=== PATIENT | female | born 1960 | race Caucasian/White ===

== ENCOUNTER 2018-03-31 13:04 | Observation (INO) ==
[2018-03-31] MEDS ORDERED: Aspirin 81 MG TAB.CHEW PO ONE (13:16)
--- NOTE | 2018-03-31 13:16 | Emergency Department Note ---
Disposition Clinical Impression: Stable angina Disposition: Admitted As Inpatient Condition: Fair Referrals: Kiki Rutledge MD [Primary Care Provider] - Time of Disposition: 16:01 Chest Pain HPI - General Stated Complaint: chest pain Time Seen by Provider: 03/31/18 13:06 Source: patient Mode of arrival: ambulatory Limitations: no limitations Vital Signs Reviewed: Yes Nursing Notes Reviewed: Yes - History of Present Illness HPI Narrative: Patient presents to the ED if the chief complaint of chest pain. Patient states that it started earlier today. Located in her central and right chest. Describes it as sharp, stabbing, constant, nonradiating. Has a history of a stent, but does not remember if this pain feels similar or not. Denies any nausea or diaphoresis. No headache or changes in vision. No difficulty breathing. No abdominal pain, nausea, vomiting or diarrhea. No rashes - Related Data Home Medications Medication Instructions Recorded Confirmed Atorvastatin Calcium [Lipitor] 80 mg PO HS 03/31/18 03/31/18 Cetirizine HCl [All Day Allergy] 10 mg PO DAILY 03/31/18 03/31/18 Clopidogrel [Plavix] 75 mg PO DAILY 03/31/18 Ergocalciferol (VITAMIN D2) 50,000 unit PO QWEEK 03/31/18 03/31/18 [Vitamin D2] Fenofibrate [Tricor] 54 mg PO DAILY 03/31/18 03/31/18 Gabapentin [Neurontin] 300 mg PO TID 03/31/18 03/31/18 Insulin Degludec [Tresiba 35 unit SQ QPM 03/31/18 03/31/18 Flextouch U-200] Losartan/Hydrochlorothiazide 1 tab PO DAILY 03/31/18 [Losartan-Hctz 100-12.5 mg Tab] Naproxen [Naprosyn] 500 mg PO BID 03/31/18 03/31/18 [place]-3/Dha/Epa/Fish Oil [Cvs Fish 1 cap PO BID 03/31/18 03/31/18 Oil 1,000 mg Softgel] Omeprazole [PriLOSEC] 40 mg PO DAILY 03/31/18 03/31/18 Oxybutynin Chloride [Ditropan Xl] 10 mg PO DAILY 03/31/18 03/31/18 Sennosides/Docusate Sodium [Senna 1 tab PO BID 03/31/18 03/31/18 Plus] Tizanidine HCl 2 mg PO BID 03/31/18 03/31/18 Allergies Allergy/AdvReac Type Severity Reaction Status Date / Time No Known Allergies Allergy Verified 03/31/18 14:26 Review of Systems: As reviewed in the HPI. All other systems reviewed are negative or normal. Physical Exam CONSTITUTIONAL: [well appearing, alert and in no acute distress] EYES: [EOMI, clear conjunctiva, PERRLA] HENT: [Normocephalic, atraumatic, moist mucus membranes, normal oropharynx] NECK: [normal inspection, full ROM, trachea midline, no obvious swelling] PULMONARY: [normal lung sounds bilaterally, normal chest rise and fall, no respiratory distress or stridor, no wheezes, no rales, no rhonchi CARDIOVASCULAR: [regular rate, regular rhythm, normal heart sounds, no murmurs, distal extremities are warm and well perfused] GASTROINSTESTINAL: [soft, non-tender, non-rigid, non-distended, no guarding, no rebound, normal bowel sounds] GENITOURINARY/RECTAL: [deferred] NEUROLOGIC: [Alert, oriented x3, normal speech, moves all extremities] EXTREMITIES: [Normal inspection, full ROM, no tenderness, no pedal edema, normal capillary refill] MUSCULOSKELETAL: [no gross deformities, atraumatic] SKIN: [No cyanosis, no diaphoresis, normal color, warm, no rash] PSYCHIATRIC: [normal mood and affect] Course Course Narrative: Patient admitted the hospitalist service. - Reevaluation(s) Reevaluation #1: Pain is better and gone after nitroglycerin Vital Signs Temperature 98.8 F 03/31/18 13:15 Pulse Rate 70 03/31/18 13:15 Respiratory Rate 16 03/31/18 13:15 Blood Pressure 144/79 03/31/18 13:15 O2 Sat by Pulse Oximetry 96 03/31/18 13:15 Temperature 98.8 F 03/31/18 13:15 Pulse Rate 84 03/31/18 14:09 Respiratory Rate 16 03/31/18 14:09 Blood Pressure 129/86 03/31/18 14:09 O2 Sat by Pulse Oximetry 96 03/31/18 14:09 Oxygen Delivery Oxygen Delivery Room Air Chest Pain - Medical Records Medical records reviewed: Yes I reviewed the patient's medical records. - Lab Data Lab results reviewed: Yes I reviewed the patient's lab results. Result diagrams: 03/31/18 13:32 03/31/18 13:32 Lab Results 03/31/18 03/31/18 03/31/18 Range/Units 13:32 13:32 13:32 WBC 7.3 (4.3-11.1) K/mcL RBC 4.51 (3.82-4.97) M/mcL Hgb 13.2 (11.5-15.4) g/dL Hct 41.7 (35.3-44.9) % MCV 92.5 (83.0-100.0) fL MCH 29.3 (28.0-33.3) pg MCHC 31.7 (31.6-35.5) g/dL RDW 12.9 (11.5-14.5) % Plt Count 245 (140-400) K/mcL MPV 11.5 (9.4-12.4) fL Immature Gran % 0.3 (0-4) % Seg Neutrophils % 62.0 % Lymphocytes % 26.9 % Monocytes % 6.3 % Eosinophils % 4.0 % Basophils % 0.5 % Neutrophils # 4.5 (1.6-8.9) K/mcL Lymphocytes # 2.0 (0.6-4.6) K/mcL Monocytes # 0.5 (0.0-1.3) K/mcL Eosinophils # 0.3 (0.0-0.6) K/mcL Basophils # 0.0 (0.0-0.2) K/mcL D-Dimer 782 H (0-500) ng/mLFEU Sodium 141 (136-145) mEq/L Potassium 3.8 (3.5-5.1) mEq/L Chloride 107 (98-107) mEq/L Carbon Dioxide 26 (23-29) mEq/L BUN 21 H (6-20) mg/dL Creatinine 1.14 (0.60-1.20) mg/dL Est GFR ( Amer) 59 L (> 60) Est GFR (Non-Af Amer) 49 L (> 60) BUN/Creatinine Ratio 18 (6-26) Glucose 163 H (70-105) mg/dL Calculated Osmolality 299 (280-300) Calcium 9.5 (8.6-10.3) mg/dL Troponin I < 0.03 (< 0.04) ng/mL Urine Color (Yellow) Urine Clarity (Clear) Urine pH (5.0-8.0) pH Units Ur Specific [place] (1.010-1.025) Urine Protein (Neg-Trace) mg/dL Urine Glucose (UA) (Normal) mg/dL Urine Ketones (Negative) mg/dL Urine Blood (Negative) Urine Nitrite (Negative) Urine Bilirubin (Negative) Urine Urobilinogen (Normal) mg/dL Ur Leukocyte Esterase (Negative) Urine Microscopic RBC (0-3) per hpf Urine Microscopic WBC (0-3) per hpf Ur Squamous Epith Cells (None-Few) per lpf Urine Bacteria (None-Few) per hpf Hyaline Casts (None-Few) per lpf Ur Culture Indicated? (NO) 03/31/18 Range/Units 13:55 WBC (4.3-11.1) K/mcL RBC (3.82-4.97) M/mcL Hgb (11.5-15.4) g/dL Hct (35.3-44.9) % MCV (83.0-100.0) fL MCH (28.0-33.3) pg MCHC (31.6-35.5) g/dL RDW (11.5-14.5) % Plt Count (140-400) K/mcL MPV (9.4-12.4) fL Immature Gran % (0-4) % Seg Neutrophils % % Lymphocytes % % Monocytes % % Eosinophils % % Basophils % % Neutrophils # (1.6-8.9) K/mcL Lymphocytes # (0.6-4.6) K/mcL Monocytes # (0.0-1.3) K/mcL Eosinophils # (0.0-0.6) K/mcL Basophils # (0.0-0.2) K/mcL D-Dimer (0-500) ng/mLFEU Sodium (136-145) mEq/L Potassium (3.5-5.1) mEq/L Chloride (98-107) mEq/L Carbon Dioxide (23-29) mEq/L BUN (6-20) mg/dL Creatinine (0.60-1.20) mg/dL Est GFR ( Amer) (> 60) Est GFR (Non-Af Amer) (> 60) BUN/Creatinine Ratio (6-26) Glucose (70-105) mg/dL Calculated Osmolality (280-300) Calcium (8.6-10.3) mg/dL Troponin I (< 0.04) ng/mL Urine Color Yellow (Yellow) Urine Clarity Clear (Clear) Urine pH 6.5 (5.0-8.0) pH Units Ur Specific [place] 1.027 H (1.010-1.025) Urine Protein Negative (Neg-Trace) mg/dL Urine Glucose (UA) Normal (Normal) mg/dL Urine Ketones Negative (Negative) mg/dL Urine Blood Negative (Negative) Urine Nitrite Negative (Negative) Urine Bilirubin Negative (Negative) Urine Urobilinogen Normal (Normal) mg/dL Ur Leukocyte Esterase Small H (Negative) Urine Microscopic RBC 0-3 (0-3) per hpf Urine Microscopic WBC 5-15 H (0-3) per hpf Ur Squamous Epith Cells Many H (None-Few) per lpf Urine Bacteria None Seen (None-Few) per hpf Hyaline Casts None Seen (None-Few) per lpf Ur Culture Indicated? NO. A (NO) - Radiology Data Radiology results reviewed: Yes I reviewed the patient's radiology results. - EKG Data EKG attestation: Yes I reviewed and interpreted this EKG. EKG results narrative: Sinus rhythm, rate 53, indeterminate axis, no acute ischemic changes Heart Score - Score History: Highly Suspicious EKG: Normal Age: 45-65 Risk Factors: Equal/Greater than 3 risk factor or history of atherosclerotic disease Troponin: Less than normal limit HEART Score Total: 5 Attestation Statement - Attestation Attestation: Patient was seen with resident physician. I reviewed the history, physical, assessment and plan, and agree with the findings. I also personally evaluated this patient and had [id number] time with this patient. 57-year-old female presents emergency Department with chest pain. Pain lasted approximately 5-7 minutes. Patient took a nitroglycerin. It resolved. Patient states the pain is in the middle the chest was nonradiating and it was sharp in nature. Patient has a history of DC with stent placement approximately 3 years ago. She denies diaphoresis or shortness of breath. She denies other symptoms. Currently she is pain-free. Review of systems as above remainder negative. Physical exam vital signs are stable. ENT is unremarkable. Heart regular rhythm and rate. Lungs clear. Abdomen is soft and nontender. Extremities are unremarkable. Neurologically intact. Skin no rashes. Psych normal. ED course. We will do usual cardiac workup. EKG shows no acute ischemic changes. Once workup is complete we will likely admit the patient to the hospital service for additional evaluation and treatment. She has any more pain will treat with nitroglycerin. Troponin was negative. EKG showed no acute ischemic changes. However patient had atherosclerotic changes that could be seen on her CT scan. And, in addition the fact that she had chest pain that r esolved with nitroglycerin, we felt it was important to admit the patient for additional evaluation and treatment is indicated. We contacted the hospitalist service agreed to accept the patient. Hemodynamically she remained stable and chest pain-free while in the emergency department. I agree with resident physician assessment and plan.
[2018-03-31 13:55] LABS: Basophils % 0.5 %; Eosinophils # 0.3 K/mcL (0.0-0.6); Hematocrit 41.7 % (35.3-44.9); Hemoglobin 13.2 g/dL (11.5-15.4); Immature Granulocytes % 0.3 % (0-4); Lymphocytes % 26.9 %; Mean Corpuscular HGB Conc 31.7 g/dL (31.6-35.5); Mean Corpuscular Hemoglobin 29.3 pg (28.0-33.3); Mean Corpuscular Volume 92.5 fL (83.0-100.0); Mean Platelet Volume 11.5 fL (9.4-12.4); Monocytes # 0.5 K/mcL (0.0-1.3); Monocytes % 6.3 %; Neutrophils # 4.5 K/mcL (1.6-8.9); Platelet Count 245 K/mcL (140-400); Red Blood Count 4.51 M/mcL (3.82-4.97); Red Cell Distribution Width 12.9 % (11.5-14.5)
[2018-03-31 14:09] LABS: Bilirubin,Urine Negative (Negative); Blood,Urine Negative (Negative); Clarity,Urine Clear (Clear); Color,Urine Yellow (Yellow); Glucose,Urine (UA) Normal (Normal); Ketones,Urine Negative (Negative); Leukocyte Esterase,Urine Small (Negative); Nitrite,Urine Negative (Negative); PH,Urine 6.5 pH Units (5.0-8.0); Protein,Urine Negative (Neg-Trace); Specific Gravity,Urine 1.027 (1.010-1.025); Urobilinogen,Urine Normal (Normal)
[2018-03-31 14:15] LABS: Bacteria,Urine None Seen per hpf (None-Few); Hyaline Casts,Urine None Seen per lpf (None-Few); RBC,Urine 0-3 per hpf (0-3); Squamous Epithelial Cell,Urine Many per lpf (None-Few)
[2018-03-31 14:17] LABS: BUN/Creatinine Ratio 18 (6-26); Blood Urea Nitrogen 21 mg/dL (6-20); Calcium 9.5 mg/dL (8.6-10.3); Carbon Dioxide 26 mEq/L (23-29); Chloride 107 mEq/L (98-107); Glucose 163 mg/dL (70-105); Osmolality,Calculated 299 (280-300); Potassium 3.8 mEq/L (3.5-5.1); Sodium 141 mEq/L (136-145); eGFR For Non-African Americans 49 (> 60)
[2018-03-31 14:18] LABS: Troponin I < 0.03 ng/mL (< 0.04)
[2018-03-31] MEDS ORDERED: Isovue-370 500 ML INFUS..BTL IV ONE (14:36)
[2018-03-31] MEDS ORDERED: Naloxone 0.4 MG/ML INJ IVP PRN (17:39)
--- NOTE | 2018-03-31 17:55 | Internal Med History&Physical ---
Date of Encounter: 03/31/18 Time of Encounter: 17:46 Internal Medicine - H&P: HPI Chief complaint: CP Admitted From: Emergency Dept Plans for Post Hospital Care: Home History of present illness: Ms. Riojas is a 57 year old female patient with history of CAD status post a stent 10 years ago under care of cardiology at [facility], hypertension, arthritis came to ER with complaint of substernal chest pain is started to ra diate left chest not associated with nausea lightheadedness or diaphoresis. She rated pain 8 x 10 and took one nitroglycerin that is started to ease down incompletely resolved when released to ER after taking 1 dose of aspirin. Pain was started when she was sitting in the car when her daughter was driving to take her to shopping center. Daughter brought her to ER immediately when patient is started to have chest pain. In ER initial troponin negative with no acute ST-T wave change in the EKG. Vitals stable with no significant lab abnormality. She is not able to recall about last a stress tests or any cardiac workup. During my evaluation patient denies any chest pain. She also denies fever chills nausea vomiting headache dizziness shortness of breath abdominal pain urinary or bowel complaint Patient live at [facility] and visiting [place] for shopping Past Med Surg Social Fam HX - Past Medical History Medical history: diabetes, hypertension, myocardial infarction Psychiatric history: no psych history - Past Surgical History Additional surgical history: stent in heart - Social History Smoking Status: Never smoker Smokeless Tobacco Status: No Alcohol use: none Drug use: none Internal Medicine - H&P: Meds Atorvastatin Calcium [Lipitor] 80 mg PO HS 03/31/18 [History] Cetirizine HCl [All Day Allergy] 10 mg PO DAILY 03/31/18 [History] Clopidogrel [Plavix] 75 mg PO DAILY 03/31/18 [History] Ergocalciferol (VITAMIN D2) [Vitamin D2] 50,000 unit PO QWEEK 03/31/18 [History] Fenofibrate [Tricor] 54 mg PO DAILY 03/31/18 [History] Gabapentin [Neurontin] 300 mg PO TID 03/31/18 [History] Insulin Degludec [Tresiba Flextouch U-200] 35 unit SQ QPM 03/31/18 [History] Losartan/Hydrochlorothiazide [Losartan-Hctz 100-12.5 mg Tab] 1 tab PO DAILY 03/31/18 [History] Naproxen [Naprosyn] 500 mg PO BID 03/31/18 [History] [place]-3/Dha/Epa/Fish Oil [Cvs Fish Oil 1,000 mg Softgel] 1 cap PO BID 03/31/18 [History] Omeprazole [PriLOSEC] 40 mg PO DAILY 03/31/18 [History] Oxybutynin Chloride [Ditropan Xl] 10 mg PO DAILY 03/31/18 [History] Sennosides/Docusate Sodium [Senna Plus] 1 tab PO BID 03/31/18 [History] Tizanidine HCl 2 mg PO BID 03/31/18 [History] Allergy/AdvReac Type Severity Reaction Status Date / Time No Known Allergies Allergy Verified 03/31/18 14:26 All Systems PM: A 10-system review of systems was performed and is negative for pertinent findings except as documented above in the HPI. - Constitutional Vitals: Temp Pulse Resp BP Pulse Ox 98.8 F 76 15 136/85 96 03/31/18 13:15 03/31/18 16:22 03/31/18 17:24 03/31/18 17:24 03/31/18 16:22 Exam: General appearance: No acute distress, A&O X 3 Head exam: Atraumatic Eye exam: EOMI, PERRLA ENT exam: Moist oral mucosa Neck nontender, supple Respiratory exam: Clear to auscultation bilaterally Cardiovascular exam: Regular rate and rhythm, no systolic murmur Abdominal exam: Soft, nontender, nondistended, positive bowel sounds Extremities exam: No calf tenderness, no pedal edema Present: Skin-no rash, warm, dry, intact Neurological exam: Alert, awake, oriented 3, CN II-XII intact, no focal deficits. Internal Med - H&P Results - Labs CBC & Chem 7: 03/31/18 13:32 03/31/18 13:32 Labs: Short CBC 03/31/18 Range/Units 13:32 WBC 7.3 (4.3-11.1) K/mcL Hgb 13.2 (11.5-15.4) g/dL Hct 41.7 (35.3-44.9) % Plt Count 245 (140-400) K/mcL Neutrophils # 4.5 (1.6-8.9) K/mcL BMP 03/31/18 13:32 Sodium 141 Potassium 3.8 Chloride 107 Carbon Dioxide 26 BUN 21 H Creatinine 1.14 Glucose 163 H Calcium 9.5 Cardiac Enzymes 03/31/18 Range/Units 13:32 Troponin I < 0.03 (< 0.04) ng/mL Urine 03/31/18 Range/Units 13:55 Urine Color Yellow (Yellow) Urine Clarity Clear (Clear) Urine pH 6.5 (5.0-8.0) pH Units Ur Specific [place] 1.027 H (1.010-1.025) Urine Protein Negative (Neg-Trace) mg/dL Urine Glucose (UA) Normal (Normal) mg/dL - Impressions ITS Impressions Chest X-Ray 03/31/18 13:16 IMPRESSION: No acute abnormality. D/ / Al Ny MD / Al Ny MD Interpreting Provider: Al Ny MD Chest CTA 03/31/18 14:36 IMPRESSION: No acute pulmonary embolus. No acute abnormality in the chest. Extensive coronary atherosclerosis D/ / Al Ny MD / Al Ny MD Interpreting Provider: Al Ny MD - Assessment and plan (1) Chest pain Current Visit: Yes Status: Acute Assessment and plan: Multiple risk factor with previous history of CAD, hypertension with new onset of chest pain therefore need to rule out. Will admit patient in telemetry bed, serial troponin, echocardiogram. A stress test tomorrow. Continue aspirin, statin, nitroglycerin, oxygen when necessary. Will consult cardiology if needed Qualifiers: Chest pain type: other chest pain Qualified Code(s): R07.89 - Other chest pain; R07.8 - Other chest pain (2) CAD (coronary artery disease) Current Visit: Yes Status: Acute Assessment and plan: History of a stent 10 years ago. Follow cardiology at [place]. above- mentioned. Qualifiers: Coronary Disease-Associated Artery/Lesion type: unspecified vessel or lesion type Associated angina: angina presence unspecified Qualified Code(s): I25.10 - Atherosclerotic heart disease of [place] coronary artery without angina pectoris (3) Hypertension Current Visit: Yes Status: Acute Assessment and plan: Stable blood pressure. Monitor closely. will start low-dose beta christiane if tolerated Qualifiers: Hypertension type: essential hypertension Qualified Code(s): I10 - Essential (primary) hypertension (4) DVT prophylaxis Current Visit: Yes Status: Acute Assessment and plan: Subcutaneous heparin (5) Hyperlipidemia Current Visit: Yes Status: Acute Assessment and plan: Fasting lipid profile in the morning. Continue home medicine statin Qualifiers: Hyperlipidemia type: unspecified Qualified Code(s): E78.5 - Hyperlipidemia, unspecified - Time Spent With Patient Total time spent is greater than 50% in coordination of care (as documented) at patient's floor/unit and/or counseling patient: 25 - 35 minutes
[2018-03-31] MEDS: *HR* Heparin 5,000 UNIT/ML VIAL SQ SCH (20:49)
[2018-03-31] MEDS: Gabapentin 300 MG CAPSULE PO SCH (22:01)
[2018-04-01 00:58] LABS: Basophils % 0.5 %; Eosinophils # 0.3 K/mcL (0.0-0.6); Eosinophils % 3.7 %; Hematocrit 40.6 % (35.3-44.9); Hemoglobin 13.1 g/dL (11.5-15.4); Immature Granulocytes % 0.1 % (0-4); Lymphocytes # 2.5 K/mcL (0.6-4.6); Lymphocytes % 33.7 %; Mean Corpuscular HGB Conc 32.3 g/dL (31.6-35.5); Mean Corpuscular Hemoglobin 29.2 pg (28.0-33.3); Mean Corpuscular Volume 90.4 fL (83.0-100.0); Mean Platelet Volume 11.7 fL (9.4-12.4); Monocytes # 0.5 K/mcL (0.0-1.3); Neutrophils # 4.1 K/mcL (1.6-8.9); Platelet Count 208 K/mcL (140-400); Red Blood Count 4.49 M/mcL (3.82-4.97); Red Cell Distribution Width 13.1 % (11.5-14.5)
[2018-04-01 01:05] LABS: Prothrombin Time 11.5 Seconds (9.4-12.1)
[2018-04-01 01:08] LABS: Activated Partial Thrombo Time 26.3 Seconds (26.0-36.0)
[2018-04-01 01:17] LABS: Calcium 9.6 mg/dL (8.6-10.3); Chol/HDL Ratio 3.2 (0-4.9); Potassium 3.6 mEq/L (3.5-5.1)
[2018-04-01] MEDS: *HR* Heparin 5,000 UNIT/ML VIAL SQ SCH (05:22)
[2018-04-01] MEDS ORDERED: Regadenoson 0.4 MG/5 ML SYRINGE IVP ONE (06:05)
[2018-04-01] MEDS ORDERED: Perflutren Lipid Microsphere 1.3 ML in 0.9 % Sodium Chloride 8.7 ML IVP ONE (08:49)
[2018-04-01 11:03] VITALS: BP 168/96
[2018-04-01] MEDS: Gabapentin 300 MG CAPSULE PO SCH (12:06)
--- NOTE | 2018-04-01 14:37 | Discharge Summary ---
- NOTES TO OUTPATIENT PROVIDER Notes to Outpatient Provider: Follow-up PCP in 3-5 days. Follow-up with cardiology within 1 week Orders not resulted at time of discharge: Pending orders 03/31/18 17:46 NM justin perf SPECT multi [NM] Routine Date of Encounter: 04/01/18 Time of Encounter: 14:35 - Discharge Diagnosis (1) Chest pain Priority: Primary Status: Acute Assessment and Plan: Multiple risk factor with previous history of CAD, hypertension with new onset of chest pain therefore admitted in telemetry bed. Serial troponin negative. A stress test with no acute ischemia but EF 36%. Echocardiogram EF 45% with moderate segmental LVEDD, mild LVEDD. Called her stage director Dr. Cooper office with phone number [phone] and talk to his nurse as he was out of office. As per nurse last EF 60% in October 2016 when patient had angiogram. She confirmed that patient is on Plavix, statin and losartan. Not sure why not on aspirin. There was planned to start isosorbide but has not started yet. Is there was new change in EF therefore I talked to on-call stage director at [place] Dr. Núñez and discussed the concern. He advise as there is no acute ischemia even declined EF compared to last as mentioned above and patient chest pain-free, is still patient can be discharged on her home medicine but added Coreg 3.125 mg by mouth twice a day. Patient needs to follow her stage director within 1 week. Discussed the discharge plan with patient. Raised d-dimer but ruled out PE in CT Qualifiers: Chest pain type: other chest pain Qualified Code(s): R07.89 - Other chest pain; R07.8 - Other chest pain (2) CAD (coronary artery disease) Priority: Secondary Status: Acute Assessment and Plan: History of a stent in 2012. Follow cardiology at [place]. Qualifiers: Coronary Disease-Associated Artery/Lesion type: unspecified vessel or lesion type Associated angina: angina presence unspecified Qualified Code(s): I25.10 - Atherosclerotic heart disease of [place] coronary artery without angina pectoris (3) Hypertension Priority: Secondary Status: Acute Assessment and Plan: Stable blood pressure. Monitor closely. will start low-dose beta christiane if tolerated Qualifiers: Hypertension type: essential hypertension Qualified Code(s): I10 - Essential (primary) hypertension (4) Hyperlipidemia Priority: Secondary Status: Acute Assessment and Plan: Fasting lipid profile in the morning. Continue home medicine statin Qualifiers: Hyperlipidemia type: unspecified Qualified Code(s): E78.5 - Hyperlipidemia, unspecified Hospital course: Ms. Riojas is a 57 year old female patient got admitted for chest pain rule out ACS workup. Please see details in diagnosis section of discharge summary. At the time of discharge patient is hemodynamically stable, chest pain-free, tolerating oral diet and ambulating well. Discharge discussed with: patient, family, nurse, care consultant - Time Spent with Patient Total time spent providing and/or coordinating discharge services: - Discharge Medications Home Medications: Atorvastatin Calcium [Lipitor] 80 mg PO HS 03/31/18 [History] Cetirizine HCl [All Day Allergy] 10 mg PO DAILY 03/31/18 [History] Clopidogrel [Plavix] 75 mg PO DAILY 03/31/18 [History] Ergocalciferol (VITAMIN D2) [Vitamin D2] 50,000 unit PO QWEEK 03/31/18 [History] Fenofibrate [Tricor] 54 mg PO DAILY 03/31/18 [History] Gabapentin [Neurontin] 300 mg PO TID 03/31/18 [History] Insulin Degludec [Tresiba Flextouch U-200] 35 unit SQ QPM 03/31/18 [History] Losartan/Hydrochlorothiazide [Losartan-Hctz 100-12.5 mg Tab] 1 tab PO DAILY 03/31/18 [History] Naproxen [Naprosyn] 500 mg PO BID 03/31/18 [History] [place]-3/Dha/Epa/Fish Oil [Cvs Fish Oil 1,000 mg Softgel] 1 cap PO BID 03/31/18 [History] Omeprazole [PriLOSEC] 40 mg PO DAILY 03/31/18 [History] Oxybutynin Chloride [Ditropan Xl] 10 mg PO DAILY 03/31/18 [History] Sennosides/Docusate Sodium [Senna Plus] 1 tab PO BID 03/31/18 [History] Tizanidine HCl 2 mg PO BID 03/31/18 [History] Allergies/Adverse Reactions: Allergy/AdvReac Type Severity Reaction Status Date / Time No Known Allergies Allergy Verified 03/31/18 14:26 Date of admission: 03/31/18 17:02 Primary care physician: Kiki Rutledge MD - Constitutional Vitals: Temp Pulse Resp BP Pulse Ox 98.0 F 72 18 168/96 96 04/01/18 11:02 04/01/18 11:02 04/01/18 11:02 04/01/18 11:02 04/01/18 11:02 Exam: General appearance: No acute distress, A&O X 3 Neck nontender, supple Respiratory exam: Clear to auscultation bilaterally Cardiovascular exam: Regular rate and rhythm, no systolic murmur Abdominal exam: Soft, nontender, nondistended, positive bowel sounds Extremities exam: No calf tenderness, no pedal edema Present: Skin-no rash, warm, dry, intact Neurological exam: Grossly intact - Patient Status Disposition: Home, Self-Care Condition: Good Overall status at discharge: patient is back to baseline - Discharge Instructions Follow Up With: Kiki Rutledge MD [Primary Care Provider] - Forms: ED Satisfaction Letter - Diet and Activity Activity: increase activity as tolerated Diet: low fat, low cholesterol, low salt diet
--- NOTE | 2018-04-03 11:33 | Electrocardiograph Report ---
[place] [id number] Test Date: 2018-03-31 Pat Name: Gris Riojas Department: [id number] Room: 3B38 Gender: F Journeyman Plumber: : [id number] Requested By: Travon Sierra Order Number: [id number] Reading MD: Kike Zepeda Measurements Intervals [place] Rate: 53 P: 27 WA: 152 QRS: -2 QRSD: 95 T: 180 QT: 431 QTc: 405 Interpretive Statements Sinus rhythm LVH with secondary repolarization abnormality Anterior Q waves, possibly due to LVH Electronically Signed On 04-03-2018 11:31:11 EST by Kike Zepeda
== END 2018-04-01 16:43 | disposition home or self-care (01) ==
LOC: EMEROOARM 13:04 → 3BNU 13:04
PROVIDERS: ADMIT Internal Medicine; ATTEND Internal Medicine